=== PATIENT | male | born 1950 | race Caucasian/White ===

== ENCOUNTER 2016-11-21 08:37 | Observation (INO) | payer OTHER ==
[2016-11-21] MEDS ORDERED: SODIUM CHLORIDE 0.9% 1,000 ML IV ONE (09:07)
[2016-11-21] MEDS ORDERED: methylPREDNISolone SOD SUCCI 125 MG/2 ML VIAL IV STA (09:07)
[2016-11-21] MEDS ORDERED: diphenhydrAMINE 50 MG/ML 1 ML VIAL IVP STA (09:08)
[2016-11-21] MEDS ORDERED: PIPERACILLIN-TAZOBACTAM 3.375 GM in DEXTROSE/WATER 1 50ML.BAG IVPB STA (09:12)
[2016-11-21] MEDS ORDERED: SODIUM CHLORIDE 0.9% 1,000 ML IV SCH (09:15)
--- NOTE | 2016-11-21 09:19 | ED ---
Skin/Abscess/FB HPI - General Source: patient, RN notes reviewed, old records reviewed Mode of arrival: ambulatory Limitations: no limitations <Shruthi Rogers - Last Filed: 11/21/16 11:27> <Geraldo English - Last Filed: 11/21/16 11:48> - General Chief complaint: Skin/Abscess/Foreign Body Stated complaint: left hand swelling from bug bite Time Seen by Provider: 11/21/16 08:50 - History of Present Illness Initial comments: This is a 65-year-old male presents emergency Department chief complaint of left hand and forearm swelling and itching. Patient reports that he was stung by a bee or some type of insect on his left hand on Thursday afternoon, 2 days ago. Patient reports that after he put Solarcaine over the site. Patient states that he noticed increased swelling to his hand up towards his forearm. He then went to his primary care provider yesterday and was started on Keflex. Patient reports that he stopped drinking 2 doses of Keflex at this time. He reports that he is concerned because the area of redness and swelling and firmness is no extended up towards the elbow. Patient reports that he has normal sensation, but has limited range of motion due to the swelling is fingers , wrist and forearm. Patient states that he has not taken any Benadryl. He reports that he is has a erythematous pruritic rash extending up the forearm. Patient states that he was concerned due to the increase in size over the past 24 hours. Patient denies any fever or chills. Patient denies any chest pain, shortness of breath, nausea or vomiting. Past medical history is for depression and anxiety, and prostatectomy. (Shruthi Rogers) - Related Data Home Medications Medication Instructions Recorded Confirmed ALPRAZolam [Xanax] 0.5 mg PO BID PRN 11/21/16 11/21/16 Cephalexin [Keflex] 500 mg PO Q12HR 11/21/16 11/21/16 Cholecalciferol (Vitamin D3) 2,000 unit PO DAILY 11/21/16 11/21/16 [Vitamin D3] buPROPion HCL [Wellbutrin SR] 150 mg PO DAILY 11/21/16 11/21/16 buPROPion HCL [Wellbutrin SR] 150 mg PO DAILY PRN 11/21/16 11/21/16 Allergies Allergy/AdvReac Type Severity Reaction Status Date / Time adhesive tape Allergy Rash/Hives Verified 11/21/16 09:06 Review of Systems ROS Other: All systems not noted in ROS Statement are negative. <KenShruthi - Last Filed: 11/21/16 11:27> ROS Other: All systems not noted in ROS Statement are negative. <Geraldo English - Last Filed: 11/21/16 11:48> ROS Statement: Those systems with pertinent positive or pertinent negative responses have been documented in the HPI. Past Medical History Past Medical History: Cancer, Prostate Disorder History of Any Multi-Drug Resistant Organisms: None Reported Past Surgical History: Prostate Surgery Past Psychological History: No Psychological Hx Reported Smoking Status: Current some day smoker Past Alcohol Use History: None Reported Past Drug Use History: None Reported <KenShruthi - Last Filed: 11/21/16 11:27> General Exam Limitations: no limitations General appearance: alert, in no apparent distress Head exam: Present: atraumatic, normocephalic, normal inspection Eye exam: Present: normal appearance, PERRL, EOMI. Absent: scleral icterus, conjunctival injection, periorbital swelling ENT exam: Present: normal exam, mucous membranes moist Neck exam: Present: normal inspection. Absent: tenderness, meningismus, lymphadenopathy Respiratory exam: Present: normal lung sounds bilaterally. Absent: respiratory distress, wheezes, rales, rhonchi, stridor Cardiovascular Exam: Present: regular rate, normal rhythm, normal heart sounds. Absent: systolic murmur, diastolic murmur, rubs, gallop, clicks GI/Abdominal exam: Present: soft, normal bowel sounds. Absent: distended, tenderness, guarding, rebound, rigid Left Shoulder Exam: Present: normal inspection, full ROM Upper Arm exam: Present: normal inspection, full ROM Elbow exam: Present: normal inspection, full ROM Forearm Wrist exam: Present: swelling (Significant swelling and firmness over the left hand). Absent: normal inspection (Patient has significant redness and swelling over the forearm and wrist.), full ROM (Patient has limited range of motion of the wrist due to swelling.) Hand Wrist exam: Present: tenderness, swelling (Significant swelling and redness over the left hand.), erythema (Erythema extending over the dorsum of the hand. There is an area between the second and first metacarpal that seems to be read the initial insect bite or sting was. Small pustule site.). Absent : normal inspection, full ROM Vascular: Present: normal capillary refill, radial pulse, ulnar pulse Back exam: Present: normal inspection Neurological exam: Present: alert, oriented X3, CN II-XII intact Psychiatric exam: Present: normal affect, normal mood <Shruthi Rogers - Last Filed: 11/21/16 11:27> <Geraldo English - Last Filed: 11/21/16 11:48> - General Exam Comments Initial Comments: This is a 65-year-old male. No acute distress. (Shruthi Rogers) Course <Shruthi Rogers - Last Filed: 11/21/16 11:27> <Geraldo English - Last Filed: 11/21/16 11:48> Vital Signs 11/21/16 08:46 Temperature 98.0 F Pulse Rate 80 Respiratory 20 Rate Blood Pressure 160/72 O2 Sat by Pulse 98 Oximetry - Reevaluation(s) Reevaluation #1: 11/21/16 11:45 I did personally do a [id number] evaluation the patient the patient does demonstrate left upper extremity edema and erythema. The exam is consistent with a cellulitis likely of ALLERGIC nature however infectious etiology, rule out this time. The patient will be admitted to the hospitalist service. (Geraldo English) Medical Decision Making - Lab Data Result diagrams: 11/21/16 09:18 11/21/16 09:18 - Radiology Data Radiology results: report reviewed <Shruthi Rogers - Last Filed: 11/21/16 11:27> - Lab Data Result diagrams: 11/21/16 09:18 11/21/16 09:18 <Geraldo English - Last Filed: 11/21/16 11:48> - Medical Decision Making This is a 65-year-old male presents emergency Department chief complaint of left hand and forearm swelling and itching. Patient reports that he was stung by a bee or some type of insect on his left hand on Thursday afternoon, 2 days ago. Patient reports that after he put Solarcaine over the site. Patient states that he noticed increased swelling to his hand up towards his forearm. He then went to his primary care provider yesterday and was started on Keflex. Patient reports that he stopped drinking 2 doses of Keflex at this time. Patient does have significant swelling, and erythema extending up the dorsum of the hand, and the forearm. Patient has normal capillary refill, normal sensation. He has limited range of motion only due to the fact that his hand and wrist are very swollen. The area of induration travels all the way up the forearm ending near the radial head. He has full range of motion of the elbow. Patient was started on IV, CBC CMP and blood cultures obtained. Patient was given IV Solu-Medrol, Benadryl, and started on Zosyn. X-rays of the hand and forearm are obtained. Patient's CBC, BMP are are within normal limits. Discussed case with Dr. English. He also examined the patient. Feel best if we admitted the patient for observation for continued IV antibiotic. Patient agrees to treatment plan. ( Shruthi Rogers) - Lab Data Lab Results 11/21/16 11/21/16 Range/Units 09:18 09:18 WBC 5.5 (3.8-10.6) k/uL RBC 5.11 (4.30-5.90) m/uL Hgb 15.5 (13.0-17.5) gm/dL Hct 46.4 (39.0-53.0) % MCV 90.8 (80.0-100.0) fL MCH 30.3 (25.0-35.0) pg MCHC 33.4 (31.0-37.0) g/dL RDW 14.4 (11.5-15.5) % Plt Count 209 (150-450) k/uL Neutrophils % 68 % Lymphocytes % 17 % Monocytes % 7 % Eosinophils % 4 % Basophils % 1 % Neutrophils # 3.8 (1.3-7.7) k/uL Lymphocytes # 1.0 (1.0-4.8) k/uL Monocytes # 0.4 (0-1.0) k/uL Eosinophils # 0.2 (0-0.7) k/uL Basophils # 0.0 (0-0.2) k/uL Sodium 141 (137-145) mmol/L Potassium 4.3 (3.5-5.1) mmol/L Chloride 104 (98-107) mmol/L Carbon Dioxide 26 (22-30) mmol/L Anion Gap 11 mmol/L BUN 15 (9-20) mg/dL Creatinine 0.80 (0.66-1.25) mg/dL Est GFR (MDRD) Af Amer >60 (>60 ml/min/1.73 sqM) Est GFR (MDRD) Non-Af >60 (>60 ml/min/1.73 sqM) Glucose 114 H (74-99) mg/dL Calcium 9.1 (8.4-10.2) mg/dL Total Bilirubin 0.7 (0.2-1.3) mg/dL AST 27 (17-59) U/L ALT 38 (21-72) U/L Alkaline Phosphatase 63 (38-126) U/L Total Protein 6.4 (6.3-8.2) g/dL Albumin 3.9 (3.5-5.0) g/dL - Radiology Data No Acute fracture or dislocation seen left radius or ulna. Small amount of soft tissue swelling in the second digit dorsum of the hand, overlying the second metacarpal. No evidence of subcutaneous emphysema. No evidence of Soft tissue laceration or radiopaque foreign body. (Shruthi Rogers) Disposition Time of Disposition: 11:28 <Shruthi Rogers - Last Filed: 11/21/16 11:27> <Geraldo English - Last Filed: 11/21/16 11:48> Clinical Impression: Left arm cellulitis, Left arm swelling Disposition: ADMITTED IP TO THIS [facility] Condition: Stable Referrals: Quan Stafford DO [Primary Care Provider] - 1-2 days
[2016-11-21 09:35] LABS: Basophils % (A) 1 %; CHCM 34.3; Eosinophils # (A) 0.2 k/uL (0-0.7); Eosinophils % (A) 4 %; HCT 46.4 % (39.0-53.0); HGB 15.5 gm/dL (13.0-17.5); Luc # (Auto) 0.11; Luc % (Auto) 2; Lymphocytes % (A) 17 %; MCH 30.3 pg (25.0-35.0); MCHC 33.4 g/dL (31.0-37.0); MCV 90.8 fL (80.0-100.0); Monocytes # (A) 0.4 k/uL (0-1.0); Monocytes % (A) 7 %; Neutrophils # (A) 3.8 k/uL (1.3-7.7); Neutrophils % (A) 68 %; RBC 5.11 m/uL (4.30-5.90); RDW 14.4 % (11.5-15.5); WBC 5.5 k/uL (3.8-10.6); WBC (Perox) 5.48
[2016-11-21 09:54] LABS: ALT 38 U/L (21-72); AST 27 U/L (17-59); Alkaline Phosphatase 63 U/L (38-126); Anion Gap 11 mmol/L; Blood Urea Nitrogen 15 mg/dL (9-20); Calcium 9.1 mg/dL (8.4-10.2); Carbon Dioxide 26 mmol/L (22-30); Chloride 104 mmol/L (98-107); Glucose 114 mg/dL (74-99); Non-African American GFR(MDRD) >60 (>60 ml/min/1.73 sqM); Potassium 4.3 mmol/L (3.5-5.1); Sodium 141 mmol/L (137-145); Total Bilirubin 0.7 mg/dL (0.2-1.3); Total Protein 6.4 g/dL (6.3-8.2)
--- NOTE | 2016-11-21 10:04 | XR ---
EXAMINATION TYPE: XR forearm LT, XR hand limited LT DATE OF EXAM: 11/21/2016 CLINICAL HISTORY: Patient was bit by a bug with subsequent pain of the posterior left hand and the se cond mid metacarpal area with renders swelling from the fingers to the elbow. TECHNIQUE: Two views of the left forearm are obtained. COMPARISON: None. FINDINGS: There is no acute fracture or dislocation seen in the left radius or ulna. The left elbow and wrist joints appear within normal limits. Mild soft tissue swelling is seen of the second digit overlying the proximal phalanx and metacarpal. No evidence of osseous erosion, periosteal reaction, o r subcutaneous emphysema. No radiopaque foreign body. IMPRESSION: There is no acute fracture or dislocation seen in the left radius or ulna. Small amount of soft tissue swelling of the second digit and dorsum of the hand overlying the second metacarpal wi th no evidence of subcutaneous emphysema, soft tissue laceration or radiopaque foreign body.
[2016-11-21] MEDS ORDERED: ACETAMINOPHEN TAB 325 MG TAB PO PRN (11:28)
[2016-11-21] MEDS ORDERED: ONDANSETRON 4 MG/2 ML VIAL IVP PRN (11:28)
[2016-11-21] MEDS ORDERED: MORPHINE SULFATE 4 MG/ML SYRINGE IV PRN (11:28)
[2016-11-21] MEDS ORDERED: LORazepam 2 MG/ML SYRINGE IV PRN (11:28)
[2016-11-21] MEDS ORDERED: NALOXONE 0.4 MG/ML 1 ML VIAL IV PRN (11:28)
[2016-11-21] MEDS ORDERED: KETOROLAC 30 MG/ML 1 ML VIAL IVP PRN (11:28)
[2016-11-21] MEDS ORDERED: IBUPROFEN 400 MG TAB PO PRN (11:28)
[2016-11-21] MEDS: diphenhydrAMINE 50 MG/ML 1 ML VIAL IVP SCH ×2 (12:53→20:40)
[2016-11-21] MEDS: PIPERACILLIN-TAZOBACTAM 3.375 GM in DEXTROSE/WATER 1 50ML.BAG IVPB SCH ×2 (16:07→22:56)
--- NOTE | 2016-11-22 00:12 | P.HPIM ---
History of Present Illness H&P Date: 11/21/16 Chief Complaint: Left hand swelling This is a 65-year-old male with a past medical history of anxiety/depression and prostate cancer status post surgery, presents emergency Department chief complaint of left hand and forearm swelling and itching. Patient reports that he was stung by a bee or some type of insect on his left hand on Thursday afternoon, 2 days ago. Patient reports that after he put Solarcaine over the site. Patient states that he noticed increased swelling to his hand up towards his forearm. He then went to his primary care provider yesterday and was started on Keflex. Patient did take 2 doses.. He reports that he is concerned because the area of redness and swelling and firmness is no extended up towards the elbow. Patient denies any fever or chills. Patient denies any chest pain, shortness of breath, nausea or vomiting. X-ray of the hand: No Acute fracture or dislocation seen left radius or ulna. Small amount of soft tissue swelling in the second digit dorsum of the hand, overlying the second metacarpal. No evidence of subcutaneous emphysema. No evidence of Soft tissue laceration or radiopaque foreign body. No electrolyte abnormalities noted. No leukocytosis Review of Systems CONSTITUTIONAL: No fever, no malaise, no fatigue. HEENT: No recent visual problems or hearing problems. Denied any sore throat. CARDIOVASCULAR: No chest pain, orthopnea, PND, no palpitations, no syncope. PULMONARY: , no hemoptysis. GASTROINTESTINAL: No diarrhea, no nausea, no vomiting, no abdominal pain. Normoactive bowel sounds. NEUROLOGICAL: No headaches, no weakness, no numbness. HEMATOLOGICAL: Denies any bleeding or petechiae. GENITOURINARY: Denies any burning micturition, frequency, or urgency. MUSCULOSKELETAL/RHEUMATOLOGICAL: Denies any joint pain, swelling, or any muscle pain. Patient does have left hand swelling on the dorsal area Skin: Redness and rash over the forehead ENDOCRINE: Denies any polyuria or polydipsia. The rest of the 14-point review of systems is negative. Past Medical History Past Medical History: Cancer, Prostate Disorder History of Any Multi-Drug Resistant Organisms: None Reported Past Surgical History: Prostate Surgery Past Anesthesia/Blood Transfusion Reactions: No Reported Reaction Past Psychological History: No Psychological Hx Reported Smoking Status: Never smoker Past Alcohol Use History: None Reported Past Drug Use History: None Reported - Past Family History Brother(s) Family Medical History: Myocardial Infarction (ND) Father Family Medical History: Cancer, Diabetes Mellitus Additional Family Medical History / Comment(s): liver Sister(s) Family Medical History: Diabetes Mellitus Medications and Allergies Home Medications Medication Instructions Recorded Confirmed Type ALPRAZolam [Xanax] 0.5 mg PO BID PRN 11/21/16 11/21/16 History Cephalexin [Keflex] 500 mg PO Q12HR 11/21/16 11/21/16 History Cholecalciferol (Vitamin D3) 2,000 unit PO DAILY 11/21/16 11/21/16 History [Vitamin D3] buPROPion HCL [Wellbutrin SR] 150 mg PO DAILY 11/21/16 11/21/16 History buPROPion HCL [Wellbutrin SR] 150 mg PO DAILY PRN 11/21/16 11/21/16 History Allergies Allergy/AdvReac Type Severity Reaction Status Date / Time adhesive tape Allergy Rash/Hives Verified 11/21/16 09:06 Physical Exam Vitals: Vital Signs Temp Pulse Pulse Resp BP BP Pulse Ox 11/21/16 19:38 97.7 F 78 16 141/64 95 11/21/16 16:00 18 11/21/16 15:32 98.8 F 78 18 149/74 95 11/21/16 12:53 98.1 F 56 L 18 142/68 94 L 11/21/16 12:04 98.3 F 57 L 18 153/68 98 11/21/16 08:46 98.0 F 80 20 160/72 98 Intake and Output 11/21/16 11/21/16 11/21/16 06:59 14:59 22:59 Intake Total 360 Balance 360 Intake: Oral 360 Other: Voiding Method Toilet Toilet Weight 101.605 kg Patient Weight 11/22/16 06:59 Weight 101.605 kg PHYSICAL EXAMINATION: Patient is lying in the bed comfortably, no acute distress, awake alert and oriented.. HEENT: Normocephalic. Neck is supple. Pupils reactive. Nostrils clear. Oral cavity is moist. Ears reveal no drainage. Neck reveals no JVD, carotid bruits, or thyromegaly. CHEST EXAMINATION: Trachea is central. Symmetrical expansion. Lung cai clear to auscultation and percussion. CARDIAC: Normal S1, S2 with no gallops. No murmurs ABDOMEN: Soft. Bowel sounds normal. No organomegaly. No abdominal bruits. Extremities reveal no edema. No clubbing or cyanosis Neurologically awake, alert, oriented x3 with well-coordinated movements. Skin: Rash and does have left hand dorsal swelling and redness with erythema extending to the elbow. Patient does have a rash papular. Musculoskeletal: no joint swelling or deformity. Results CBC & Chem 7: 11/21/16 09:18 11/21/16 09:18 Labs: Abnormal Lab Results - Last 24 Hours (Table) 11/21/16 Range/Units 09:18 Glucose 114 H (74-99) mg/dL Thrombosis Risk Factor Assmnt - DVT/VTE Prophylaxis DVT/VTE Prophylaxis: Pharmacologic Prophylaxis ordered - Choose All That Apply Each Factor Represents 1 point: Obesity (BMI >25) Each Risk Factor Represents 2 Points: Age 61-74 years Thrombosis Risk Factor Assessment Total Risk Factor Score: 3 Thrombosis Risk Factor Assessment Level: Moderate Risk Assessment and Plan Plan: #1 left arm cellulitis. Status post insect bite 2 days ago. ALLERGIC reaction to insect bite. Failed outpatient therapy with Keflex #2 anxiety #3 history of prostate cancer status post resection. Plan: Patient will be continued on antibiotics in the form of Zosyn. Continue the pain management with Motrin. Patient was given a dose of Solu-Medrol in the ER. We will continue the current management and follow closely. Follow blood cultures and further recommendations based on the clinical course.
[2016-11-22] MEDS: diphenhydrAMINE 50 MG/ML 1 ML VIAL IVP SCH ×2 (04:17→12:18)
[2016-11-22] MEDS: PIPERACILLIN-TAZOBACTAM 3.375 GM in DEXTROSE/WATER 1 50ML.BAG IVPB SCH ×2 (08:09→17:51)
[2016-11-22] MEDS ORDERED: PANTOPRAZOLE 40 MG/10 ML VIAL IV SCH (09:00)
[2016-11-22 16:06] VITALS: BP 129/58; PULSE 54; RESP 18; TEMP 98.6
--- NOTE | 2016-11-23 01:32 | P.DS ---
Providers Date of admission: 11/21/16 11:45 Expected date of discharge: 11/22/16 Attending physician: Ev Burgess Primary care physician: Quan Stafford Hospital Course: Discharge diagnosis #1 left arm cellulitis. Status post insect bite 2 days ago. ALLERGIC reaction to insect bite. Failed outpatient therapy with Keflex #2 anxiety #3 history of prostate cancer status post resection. #4 abdominal ventral hernia outpatient surgery follow-up. Hospital course This is a 65-year-old male with a past medical history of anxiety/depression and prostate cancer status post surgery, presents emergency Department chief complaint of left hand and forearm swelling and itching. Patient reports that he was stung by a bee or some type of insect on his left hand on Thursday afternoon, 2 days ago. Patient reports that after he put Solarcaine over the site. Patient states that he noticed increased swelling to his hand up towards his forearm. He then went to his primary care provider yesterday and was started on Keflex. Patient did take 2 doses.. He reports that he is concerned because the area of redness and swelling and firmness is no extended up towards the elbow. Patient denies any fever or chills. Patient denies any chest pain, shortness of breath, nausea or vomiting. X-ray of the hand: No Acute fracture or dislocation seen left radius or ulna. Small amount of soft tissue swelling in the second digit dorsum of the hand, overlying the second metacarpal. No evidence of subcutaneous emphysema. No evidence of Soft tissue laceration or radiopaque foreign body. No electrolyte abnormalities noted. No leukocytosis H and was continued on IV Zosyn while in the hospital and his hand swelling and redness is almost resolved. Patient will be continued on by mouth antibiotics in the form of Keflex blood cultures negative PHYSICAL EXAMINATION: Patient is lying in the bed comfortably, no acute distress, awake alert and oriented.. HEENT: Normocephalic. Neck is supple. Pupils reactive. Nostrils clear. Oral cavity is moist. Ears reveal no drainage. Neck reveals no JVD, carotid bruits, or thyromegaly. CHEST EXAMINATION: Trachea is central. Symmetrical expansion. Lung cai clear to auscultation and percussion. CARDIAC: Normal S1, S2 with no gallops. No murmurs ABDOMEN: Soft. Bowel sounds normal. No organomegaly. No abdominal bruits. Extremities reveal no edema. No clubbing or cyanosis Neurologically awake, alert, oriented x3 with well-coordinated movements. Skin: no rash or skin lesions Musculoskeletal: no joint swelling or deformity. Patient Condition at Discharge: Stable Plan - Discharge Summary New Discharge Prescriptions: Continue Cephalexin [Keflex] 500 mg PO Q12HR ALPRAZolam [Xanax] 0.5 mg PO BID PRN PRN Reason: Anxiety buPROPion HCL [Wellbutrin SR] 150 mg PO DAILY buPROPion HCL [Wellbutrin SR] 150 mg PO DAILY PRN PRN Reason: energy Cholecalciferol (Vitamin D3) [Vitamin D3] 2,000 unit PO DAILY Discharge Medication List ALPRAZolam [Xanax] 0.5 mg PO BID PRN 11/21/16 [History] Cephalexin [Keflex] 500 mg PO Q12HR 11/21/16 [History] Cholecalciferol (Vitamin D3) [Vitamin D3] 2,000 unit PO DAILY 11/21/16 [History] buPROPion HCL [Wellbutrin SR] 150 mg PO DAILY 11/21/16 [History] buPROPion HCL [Wellbutrin SR] 150 mg PO DAILY PRN 11/21/16 [History] Follow up Appointment(s)/Referral(s): Quan Stafford DO [Primary Care Provider] - 1-2 days Discharge Disposition: HOME SELF-CARE
== END 2016-11-22 17:51 | disposition home or self-care (01) ==
LOC: EC 08:37 → 3OBS 11:45
PROVIDERS: ADMIT Internal Medicine; ATTEND Internal Medicine
DX: S40.862A Insect bite (nonvenomous) of left upper arm, initial encounter (principal); L03.114 Cellulitis of left upper limb; W57.XXXA Bitten or stung by nonvenomous insect and other nonvenomous arthropods, initial encounter; F41.9 Anxiety disorder, unspecified; F32.9 Major depressive disorder, single episode, unspecified; Z91.048 Other nonmedicinal substance allergy status; F17.200 Nicotine dependence, unspecified, uncomplicated; K43.9 Ventral hernia without obstruction or gangrene; Z85.46 Personal history of malignant neoplasm of prostate; Z82.49 Family history of ischemic heart disease and other diseases of the circulatory system; Z83.3 Family history of diabetes mellitus
CPT/HCPCS: 96365 ×2; 96366 ×5; 96375 ×4; 99284; 96376 ×2; 36415; 80053; 85025; 87040; 73090; 73120; G0378 ×2; J1200 ×2; J2930; J2543 ×2; C9113; 96361

== ENCOUNTER → 2018-09-17 | Outpatient (CLI) | payer MEDICARE, OTHER ==
--- NOTE | 2018-09-19 23:39 | XR ---
EXAMINATION TYPE: XR knee complete bilateral DATE OF EXAM: 09/17/2018 COMPARISON: Left knee 10/12/2015 HISTORY: 67-year-old male chronic bilateral knee pain TECHNIQUE: 3 views each side FINDINGS: Left: No acute fracture, subluxation, or dislocation seen. Trace knee joint effusion is suggested. Right: Mild tricompartmental degenerative spurring is present with possible moderate narrowing of lat eral compartment cartilage and joint space. There is a small knee joint effusion. Extensor mechanism is intact. IMPRESSION: 1. No acute osseous abnormality on either side. Trace knee joint effusion on the left and small on th e right. 2. Mild tricompartmental osteoarthrosis on the right, possibly moderate in the lateral compartment.
== END | disposition home or self-care (01) ==
LOC: RADXRYALE 15:59
PROVIDERS: ATTEND Physician Assistant Medical
DX: M17.11 Unilateral primary osteoarthritis, right knee (principal)

== ENCOUNTER 2019-08-31 08:50 | Emergency (ER) | payer MEDICARE, OTHER ==
[2019-08-31 08:56] VITALS: RESP 18
--- NOTE | 2019-08-31 09:11 | ED ---
General Adult HPI - General Chief complaint: Urogenital Stated complaint: blood in urine Time Seen by Provider: 08/31/19 08:51 Source: patient, RN notes reviewed, old records reviewed Mode of arrival: ambulatory Limitations: no limitations - History of Present Illness Initial comments: 68-year-old male presents for evaluation of hematuria and right groin pain. Patient states he noticed the pain as well as hematuria this morning. He has previous history of prostate cancer status post resection. He follows on a regular basis with urology. He denies any difficulty urinating. He has been eating and drinking well. No vomiting or diarrhea. No fever. No preceding dysuria. - Related Data Home Medications Medication Instructions Recorded Confirmed ALPRAZolam [Xanax] 0.5 mg PO BID PRN 11/21/16 11/21/16 Cephalexin [Keflex] 500 mg PO Q12HR 11/21/16 11/21/16 Cholecalciferol (Vitamin D3) 2,000 unit PO DAILY 11/21/16 11/21/16 [Vitamin D3] buPROPion HCL [Wellbutrin SR] 150 mg PO DAILY 11/21/16 11/21/16 buPROPion HCL [Wellbutrin SR] 150 mg PO DAILY PRN 11/21/16 11/21/16 Previous Rx's Medication Instructions Recorded Cephalexin [Keflex] 500 mg PO Q12HR #20 cap 08/31/19 Allergies Allergy/AdvReac Type Severity Reaction Status Date / Time adhesive tape Allergy Rash/Hives Verified 08/31/19 08:56 Review of Systems ROS Statement: Those systems with pertinent positive or pertinent negative responses have been documented in the HPI. ROS Other: All systems not noted in ROS Statement are negative. Past Medical History Past Medical History: Cancer, Prostate Disorder Additional Past Medical History / Comment(s): prostate CA History of Any Multi-Drug Resistant Organisms: None Reported Past Surgical History: Prostate Surgery Past Anesthesia/Blood Transfusion Reactions: No Reported Reaction Past Psychological History: No Psychological Hx Reported Smoking Status: Never smoker Past Alcohol Use History: None Reported Past Drug Use History: None Reported - Past Family History Brother(s) Family Medical History: Myocardial Infarction ([place]) Father Family Medical History: Cancer, Diabetes Mellitus Additional Family Medical History / Comment(s): liver Sister(s) Family Medical History: Diabetes Mellitus General Exam Limitations: no limitations General appearance: alert, in no apparent distress Head exam: Present: atraumatic, normocephalic Eye exam: Present: normal appearance, PERRL ENT exam: Present: normal exam Neck exam: Present: normal inspection. Absent: tenderness, meningismus Respiratory exam: Present: normal lung sounds bilaterally. Absent: respiratory distress, wheezes Cardiovascular Exam: Present: regular rate, normal rhythm GI/Abdominal exam: Present: soft. Absent: distended, tenderness, guarding exam: Present: normal inspection, vertical testicular lie. Absent: testicular tenderness, urethral discharge, scrotal swelling Extremities exam: Present: normal inspection, normal capillary refill. Absent: pedal edema Back exam: Present: normal inspection. Absent: CVA tenderness (R), CVA tenderness (L) Neurological exam: Present: alert, oriented X3, CN II-XII intact. Absent: motor sensory deficit Psychiatric exam: Present: normal affect, normal mood Skin exam: Present: warm, dry, intact. Absent: cyanosis, diaphoretic Course Vital Signs 08/31/19 08:53 Temperature 98.7 F Pulse Rate 58 L Respiratory 18 Rate Blood Pressure 156/71 O2 Sat by Pulse 97 Oximetry Medical Decision Making - Medical Decision Making 68-year-old male with hematuria, groin discomfort. Scrotal exam unremarkable, no appreciated hernias. CT performed which is negative for any acute intra- abdominal process, no hydronephrosis, no obstructing stone. This was a CT without contrast. Laboratory testing reveals normal white blood cell count, stable hemoglobin, normal x-rays, normal kidney function, urinalysis consistent with hematuria, there is some elevation in white cells, culture will be obtained and the patient will be initiated on antibiotics. Patient will follow-up with his urologist Dr. Fitzgerald. - Lab Data Result diagrams: 08/31/19 09:17 08/31/19 09:17 Lab Results 08/31/19 08/31/19 08/31/19 Range/Units 09:17 09:17 09:17 WBC 6.3 (3.8-10.6) k/uL RBC 5.12 (4.30-5.90) m/uL Hgb 15.9 (13.0-17.5) gm/dL Hct 47.5 (39.0-53.0) % MCV 92.8 (80.0-100.0) fL MCH 31.1 (25.0-35.0) pg MCHC 33.5 (31.0-37.0) g/dL RDW 14.0 (11.5-15.5) % Plt Count 202 (150-450) k/uL Neutrophils % 65 % Lymphocytes % 24 % Monocytes % 6 % Eosinophils % 2 % Basophils % 1 % Neutrophils # 4.1 (1.3-7.7) k/uL Lymphocytes # 1.5 (1.0-4.8) k/uL Monocytes # 0.4 (0-1.0) k/uL Eosinophils # 0.2 (0-0.7) k/uL Basophils # 0.0 (0-0.2) k/uL PT 10.2 (9.0-12.0) sec INR 1.0 (<1.2) APTT 23.8 (22.0-30.0) sec Sodium (137-145) mmol/L Potassium (3.5-5.1) mmol/L Chloride (98-107) mmol/L Carbon Dioxide (22-30) mmol/L Anion Gap mmol/L BUN (9-20) mg/dL Creatinine (0.66-1.25) mg/dL Est GFR (CKD-EPI)AfAm (>60 ml/min/1.73 sqM) Est GFR (CKD-EPI)NonAf (>60 ml/min/1.73 sqM) Glucose (74-99) mg/dL Calcium (8.4-10.2) mg/dL Urine Color Red Urine Appearance Cloudy (Clear) Urine pH 6.5 (5.0-8.0) Ur Specific [place] 1.019 (1.001-1.035) Urine Protein 1+ H (Negative) Urine Glucose (UA) Negative (Negative) Urine Ketones Negative (Negative) Urine Blood Large H (Negative) Urine Nitrite Negative (Negative) Urine Bilirubin Negative (Negative) Urine Urobilinogen <2.0 (<2.0) mg/dL Ur Leukocyte Esterase Small H (Negative) Urine RBC >182 H (0-5) /hpf Urine WBC 62 H (0-5) /hpf 08/31/19 Range/Units 09:17 WBC (3.8-10.6) k/uL RBC (4.30-5.90) m/uL Hgb (13.0-17.5) gm/dL Hct (39.0-53.0) % MCV (80.0-100.0) fL MCH (25.0-35.0) pg MCHC (31.0-37.0) g/dL RDW (11.5-15.5) % Plt Count (150-450) k/uL Neutrophils % % Lymphocytes % % Monocytes % % Eosinophils % % Basophils % % Neutrophils # (1.3-7.7) k/uL Lymphocytes # (1.0-4.8) k/uL Monocytes # (0-1.0) k/uL Eosinophils # (0-0.7) k/uL Basophils # (0-0.2) k/uL PT (9.0-12.0) sec INR (<1.2) APTT (22.0-30.0) sec Sodium 137 (137-145) mmol/L Potassium 4.1 (3.5-5.1) mmol/L Chloride 103 (98-107) mmol/L Carbon Dioxide 24 (22-30) mmol/L Anion Gap 10 mmol/L BUN 18 (9-20) mg/dL Creatinine 0.71 (0.66-1.25) mg/dL Est GFR (CKD-EPI)AfAm >90 (>60 ml/min/1.73 sqM) Est GFR (CKD-EPI)NonAf >90 (>60 ml/min/1.73 sqM) Glucose 120 H (74-99) mg/dL Calcium 9.4 (8.4-10.2) mg/dL Urine Color Urine Appearance (Clear) Urine pH (5.0-8.0) Ur Specific [place] (1.001-1.035) Urine Protein (Negative) Urine Glucose (UA) (Negative) Urine Ketones (Negative) Urine Blood (Negative) Urine Nitrite (Negative) Urine Bilirubin (Negative) Urine Urobilinogen (<2.0) mg/dL Ur Leukocyte Esterase (Negative) Urine RBC (0-5) /hpf Urine WBC (0-5) /hpf Disposition Clinical Impression: Hematuria Disposition: HOME SELF-CARE Condition: Good Instructions (If sedation given, give patient instructions): Urinary Tract Infection in Men (ED), Hematuria (ED) Prescriptions: Cephalexin [Keflex] 500 mg PO Q12HR #20 cap Is patient prescribed a controlled substance at d/c from ED?: No Referrals: Quan Stafford DO [Primary Care Provider] - 1-2 days Salo Fitzgerald MD [STAFF PHYSICIAN] - 1-2 days Time of Disposition: 10:21
--- NOTE | 2019-08-31 09:49 | CT ---
EXAMINATION TYPE: CT abdomen pelvis wo con DATE OF EXAM: 08/31/2019 COMPARISON: 01/10/15 HISTORY: Hematuria, started today; History of prostate cancer CT DLP: 1229.4 mGycm Examination of the solid and hollow viscera is limited given the lack of contrast. FINDINGS: LUNG BASES: No evidence for nodule. No evidence for infiltrate. Evidence of granulomatous disease. LIVER/GB: The gallbladder is unremarkable. No space-occupying hepatic lesion. Hepatic granulomas note d. PANCREAS: No pancreatic mass identified. No inflammatory process seen. SPLEEN: No evidence for splenomegaly. No intrasplenic lesions seen. Splenic granulomas noted. ADRENALS: No adrenal nodules identified. No evidence for thickening. KIDNEYS: No evidence for renal mass. No nephrolithiasis. No hydronephrosis. BOWEL: Appendix has a normal appearance. No evidence of bowel obstruction. No inflammatory process. Lymph nodes: No evidence for adenopathy greater than 1 cm. Abdominal aorta: Atheromatous changes seen. No evidence for aneurysm. Genital organs: No significant abnormality. Other: Small anterior abdominal wall seroma measuring 4.7 x 3 point centimeters from prior herniorrha phy. IMPRESSION: 1. No acute intra-abdominal process identified to account for the patient's symptoms.
[2019-08-31 09:54] LABS: Basophils % (A) 1 %; Eosinophils # (A) 0.2 k/uL (0-0.7); Eosinophils % (A) 2 %; HCT 47.5 % (39.0-53.0); HGB 15.9 gm/dL (13.0-17.5); Lymphocytes # (A) 1.5 k/uL (1.0-4.8); Lymphocytes % (A) 24 %; MCH 31.1 pg (25.0-35.0); MCHC 33.5 g/dL (31.0-37.0); MCV 92.8 fL (80.0-100.0); Monocytes # (A) 0.4 k/uL (0-1.0); Monocytes % (A) 6 %; Neutrophils # (A) 4.1 k/uL (1.3-7.7); Neutrophils % (A) 65 %; Platelet Count 202 k/uL (150-450); RBC 5.12 m/uL (4.30-5.90); WBC 6.3 k/uL (3.8-10.6)
[2019-08-31 10:03] LABS: African American GFR (CKD) >90 (>60 ml/min/1.73 sqM); Anion Gap 10 mmol/L; Blood Urea Nitrogen 18 mg/dL (9-20); Calcium 9.4 mg/dL (8.4-10.2); Carbon Dioxide 24 mmol/L (22-30); Chloride 103 mmol/L (98-107); Glucose 120 mg/dL (74-99); Non-African American GFR(CKD) >90 (>60 ml/min/1.73 sqM); Potassium 4.1 mmol/L (3.5-5.1); Sodium 137 mmol/L (137-145)
[2019-08-31 10:22] LABS: Partial Thromboplastin Time 23.8 sec (22.0-30.0); Prothrombin Time 10.2 sec (9.0-12.0)
[2019-08-31 10:35] LABS: Appearance,Urine Cloudy (Clear); Bilirubin,Urine Negative (Negative); Blood,Urine Large (Negative); Color,Urine Red; Glucose,Urine (UA) Negative (Negative); Ketones,Urine Negative (Negative); Leukocyte Esterase,Urine Small (Negative); Nitrite,Urine Negative (Negative); PH, Urine 6.5 (5.0-8.0); Protein,Urine 1+ (Negative); RBC,Urine >182 /hpf (0-5); Specific Gravity,Urine 1.019 (1.001-1.035); Urobilinogen,Urine <2.0 mg/dL (<2.0); WBC,Urine 62 /hpf (0-5)
[2019-08-31 11:16] VITALS: BP 166/85; PULSE 82; TEMP 98
== END 2019-08-31 11:16 | disposition home or self-care (01) ==
LOC: EC 08:50
DX: R31.9 Hematuria, unspecified (principal); D72.829 Elevated white blood cell count, unspecified; R10.31 Right lower quadrant pain; Z91.048 Other nonmedicinal substance allergy status; Z85.46 Personal history of malignant neoplasm of prostate; Z98.890 Other specified postprocedural states
CPT/HCPCS: 36415; 74176; 80048; 81001; 85025; 85610; 85730; 87086; 99284

== ENCOUNTER 2019-10-17 08:32 | Day surgery (SDC) | payer MEDICARE, OTHER ==
[2019-10-14 10:04] VITALS: BMI 35.2
[~2019-10-17 08:32] MED LIST: LACTATED RINGERS 1,000 ML IV SCH; LIDOCAINE 1% (10MG/ML) FOR IV START INTRADERMA PRN
[2019-10-17] MEDS ORDERED: LACTATED RINGERS 1,000 ML IV ONE (08:41)
[2019-10-17 08:45] VITALS: TEMP 97.1
[2019-10-17] MEDS ORDERED: PROPOFOL 10 MG/ML 20 ML VIAL IV ONE (09:21)
--- NOTE | 2019-10-17 10:00 | P.PCN ---
Date of Procedure: 10/17/19 Description of Procedure: BRIEF HISTORY: Patient is a 68-year-old male presenting for outpatient colonoscopy for evaluation of positive Cologard. Reports last colonoscopy over 10 years ago with polyps removed. No change in bowel habits, blood per rectum or abdominal pain. No family history of colon cancer. PROCEDURE PERFORMED: Colonoscopy with polypectomy. PREOPERATIVE DIAGNOSIS: Positive Cologard, last colonoscopy over 10 years ago, personal history of colon polyps. ESTIMATED BLOOD LOSS: Minimal. IV sedation per Anesthesia. PROCEDURE: After informed consent was obtained, the patient, was brought into the endoscopy unit. IV sedation was administered by Anesthesia under continuous monitoring. Digital rectal examination was normal. Initially the Olympus CF-190 flexible video colonoscope was then inserted in the rectum, gradually advanced into the cecum without any difficulty. Careful examination was performed as the scope was gradually being withdrawn. Ileocecal valve and the appendiceal orifice were visualized and appeared normal. Prep was excellent. Mucosa of the cecum, ascending colon, transverse colon, descending colon, sigmoid colon, and rectum appeared normal. Multiple sessile colon polyps measuring 1-3 mm in size removed with cold forcep polypectomy 5 from the transverse colon, 3 from the ascending colon, one from the hepatic flexure, and one from the descending colon. A 8 mm hepatic flexure polyp removed with cold snare polypectomy. Pedunculated 12 mm transverse colon polyp removed with hot snare polypectomy. Mild sigmoid diverticulosis. Retroflexion was performed in the rectum and no lesions were seen. The patient tolerated the procedure well. IMPRESSION: 10 diminutive polyps removed with cold forcep polypectomy, 5 from the transverse colon, 3 from the ascending colon, one from the hepatic flexure, and one from the descending colon. 8 mm hepatic flexure polyp removed with cold snare polypectomy.. Pedunculated large transverse colon polyp removed with hot snare polypectomy. Mild sigmoid diverticulosis. RECOMMENDATIONS: Findings of this examination were discussed with the patient. Okay to resume diet. Okay to resume medications. Would recommend repeat colonoscopy in 1 year given high-risk colon polyps. Patient should not undergo Cologard in the future given history of colon polyps.
[2019-10-17 10:14] VITALS: BP 133/71; PULSE 53; RESP 16
== END 2019-10-17 10:34 | disposition home or self-care (01) ==
LOC: ORWHC2ENDO 08:32
PROVIDERS: ATTEND Internal Medicine
DX: D12.2 Benign neoplasm of ascending colon (principal); D12.4 Benign neoplasm of descending colon; D12.3 Benign neoplasm of transverse colon; K57.30 Diverticulosis of large intestine without perforation or abscess without bleeding; Z86.010 Personal history of colon polyps; G47.33 Obstructive sleep apnea (adult) (pediatric); M10.9 Gout, unspecified; Z91.09 Other allergy status, other than to drugs and biological substances; Z79.899 Other long term (current) drug therapy; Z98.890 Other specified postprocedural states; Z87.19 Personal history of other diseases of the digestive system; Z85.46 Personal history of malignant neoplasm of prostate; Z80.0 Family history of malignant neoplasm of digestive organs
CPT/HCPCS: 88305; 45380; 45385; J2704

== ENCOUNTER 2019-11-04 18:46 | Emergency (ER) | payer MEDICARE, OTHER ==
[2019-11-04 19:04] VITALS: BP 139/73; PULSE 65; RESP 18; TEMP 98.4
[2019-11-04] MEDS ORDERED: DIPH,PERTUS(ACELL)TETVAC-LF 0.5 ML VIAL IM ONE (19:17)
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
[2019-11-04] MEDS ORDERED: CEPHALEXIN 500MG STARTER PACK 4 CAP BTL PO STA (19:51)
== END 2019-11-04 20:12 | disposition home or self-care (01) ==
LOC: EC 18:46
DX: T25.312A Burn of third degree of left ankle, initial encounter (principal); G47.30 Sleep apnea, unspecified; M10.9 Gout, unspecified; Z23 Encounter for immunization; Z79.899 Other long term (current) drug therapy; Z91.048 Other nonmedicinal substance allergy status; Z99.89 Dependence on other enabling machines and devices; Z85.46 Personal history of malignant neoplasm of prostate; X18.XXXA Contact with other hot metals, initial encounter; Y92.009 Unspecified place in unspecified non-institutional (private) residence as the place of occurrence of the external cause
CPT/HCPCS: 90471; 90715; 99284

== ENCOUNTER → 2019-11-10 | Outpatient (CLI) | payer MEDICARE, OTHER ==
[2019-11-10 12:06] LABS: Basophils # (A) 0.1 k/uL (0-0.2); Basophils % (A) 1 %; Eosinophils # (A) 0.3 k/uL (0-0.7); Eosinophils % (A) 3 %; HCT 46.9 % (39.0-53.0); HGB 15.1 gm/dL (13.0-17.5); Lymphocytes # (A) 1.9 k/uL (1.0-4.8); Lymphocytes % (A) 21 %; MCH 29.9 pg (25.0-35.0); MCHC 32.1 g/dL (31.0-37.0); MCV 93.2 fL (80.0-100.0); Mean Platelet Volume 8.1; Monocytes # (A) 0.7 k/uL (0-1.0); Monocytes % (A) 8 %; Neutrophils # (A) 5.8 k/uL (1.3-7.7); Neutrophils % (A) 65 %; Platelet Count 270 k/uL (150-450); RBC 5.04 m/uL (4.30-5.90); WBC 8.9 k/uL (3.8-10.6)
[2019-11-10 18:53] LABS: African American GFR (CKD) 102.1 (60.0-200.0); Albumin 4.4 g/dL (3.80-4.90); Albumin/Globulin Ratio 2.2 (1.60-3.17); Anion Gap 5.7 mmol/L (4.00-12.00); C Reactive Protein 2.2 mg/dL (0.0-0.8); Calcium 9.6 mg/dL (8.7-10.3); Carbon Dioxide 29.3 mmol/L (21.6-31.8); Non-African American GFR(CKD) 88.1 (60.0-200.0); Potassium 4.4 mmol/L (3.5-5.5); Total Bilirubin 0.6 mg/dL (0.3-1.2); Total Protein 6.4 g/dL (6.2-8.2)
[2019-11-10 19:51] LABS: Erythrocyte Sedimentation Rate 10 mm/Hr (0-20)
== END | disposition home or self-care (01) ==
LOC: LABWHC1 11:24
PROVIDERS: ATTEND Family Medicine
DX: L97.323 Non-pressure chronic ulcer of left ankle with necrosis of muscle (principal); Z91.048 Other nonmedicinal substance allergy status; T25.3 Burn of third degree of ankle and foot; L03.116 Cellulitis of left lower limb; M10.00 Idiopathic gout, unspecified site; R22.42 Localized swelling, mass and lump, left lower limb
CPT/HCPCS: 36415; 80053; 84134; 85025; 85652; 86140

== ENCOUNTER → 2019-11-17 | Outpatient (CLI) | payer MEDICARE, OTHER ==
--- NOTE | 2019-11-17 15:09 | US ---
EXAMINATION TYPE: US venous doppler duplex LE BI DATE OF EXAM: 11/17/2019 2:56 PM COMPARISON: NONE CLINICAL HISTORY: wound care. Wound left ankle SIDE PERFORMED: Bilateral TECHNIQUE: The lower extremity deep venous system is examined utilizing real time linear array sonog flakito with graded compression, doppler sonography and color-flow sonography. VESSELS IMAGED: External Iliac Vein (EIV) Common Femoral Vein Deep Femoral Vein Greater Saphenous Vein * Femoral Vein Popliteal Vein Small Saphenous Vein * Proximal Calf Veins (* superficial vessels) Right Leg: Negative for DVT Left Leg: Negative for DVT IMPRESSION: 1. No diagnostic evidence of DVT as visualized.
== END | disposition home or self-care (01) ==
LOC: RADUSWWP 13:30
PROVIDERS: ATTEND Family Medicine
DX: R22.42 Localized swelling, mass and lump, left lower limb (principal); L97.323 Non-pressure chronic ulcer of left ankle with necrosis of muscle
CPT/HCPCS: 93922; 93970

== ENCOUNTER 2019-12-11 19:10 | Emergency (ER) | payer MEDICARE, OTHER ==
[2019-12-11 19:37] VITALS: RESP 18; TEMP 98.5
[2019-12-11] MEDS ORDERED: ACET/COD 300 MG/30 MG STARTER PACK 6 TAB BTL PO STA (21:15)
[2019-12-11] MEDS ORDERED: LIDOCAINE 5% PATCH TOPICAL STA (21:15)
--- NOTE | 2019-12-11 21:47 | CT ---
EXAMINATION TYPE: CT lumbar spine wo con DATE OF EXAM: 12/11/2019 COMPARISON: CT abdomen pelvis 08/31/2019 HISTORY: Leg weakness CT DLP: 1871.6 mGycm Automated exposure control for dose reduction was used. Images were obtained from the level of T12-S3 vertebra with no contrast. Lumbar vertebra have normal alignment. Disc spaces are fairly normal. Posterior elements are intact. There is no compression fracture. Abdominal aorta is atheromatous. There is no paraspinal mass. Sacro iliac joints appear intact. There is posterior disc bulging with facet arthropathy and resultant mild to moderate spinal stenosis at L4-5. IMPRESSION: L4-5 spinal stenosis. No fracture. Normal disc spaces. Spinal stenosis unchanged compared to old CT s can.
--- NOTE | 2019-12-11 22:39 | ED ---
General Adult HPI - General Chief complaint: Extremity Problem,Nontraumatic Stated complaint: Leg pain Weakness Time Seen by Provider: 12/11/19 20:51 Source: patient Mode of arrival: wheelchair Limitations: no limitations - History of Present Illness Initial comments: Patient is a 69-year-old male presenting to emergency Department with a chief complaint of low back pain and left leg weakness. Patient states he has occasional low back pain by history is noticed there was an increase in the lower lumbar region. Patient reports these also noticed some radiation that wraps around the leg and moves anteriorly along the thigh and stops at the knee. Patient reports today he was walking and he felt a weakness in the left leg which brought him to the ground. Patient denies any headache injury. Patient reports he is also going to wound clinic for a burn along the anterior aspect of the left lower leg. Patient reports that has been feeling well otherwise. Patient reports there is also an intermittent numbing like sensation on the anterior aspect of the lower leg. Although, states she can feel pain or pressure. She denies any tingling. Denies any saddle anesthesia, urinary retention with overflow incontinence or bowel incontinence. He does report history of prostate cancer. Denies other extremity pain. - Related Data Home Medications Medication Instructions Recorded Confirmed ALPRAZolam [Xanax] 0.5 mg PO BID PRN 11/21/16 10/17/19 buPROPion HCL [Wellbutrin SR] 150 mg PO DAILY 11/21/16 10/17/19 Cholecalciferol [Vitamin D3 (25 1,000 unit PO DAILY 10/13/19 10/17/19 Mcg = 1000 Iu)] Multivitamins, Thera [Multivitamin 1 tab PO DAILY 10/13/19 10/17/19 (formulary)] allopurinoL [Zyloprim] 300 mg PO DAILY 10/13/19 10/17/19 Previous Rx's Medication Instructions Recorded Cephalexin [Keflex] 500 mg PO Q6H #28 cap 11/04/19 Cyclobenzaprine [Flexeril] 10 mg PO TID PRN #15 tab 12/11/19 Allergies Allergy/AdvReac Type Severity Reaction Status Date / Time adhesive tape Allergy Rash/Hives Verified 11/04/19 19:03 Review of Systems ROS Statement: Those systems with pertinent positive or pertinent negative responses have been documented in the HPI. ROS Other: All systems not noted in ROS Statement are negative. Past Medical History Past Medical History: Cancer, Sleep Apnea/CPAP/BIPAP Additional Past Medical History / Comment(s): Hx Prostate Cancer 6-7 yrs ago. Recent blood in urine, resolved now but has appt to see Urology. Uses CPAP. Gout. History of Any Multi-Drug Resistant Organisms: None Reported Past Surgical History: Hernia Repair, Prostate Surgery Additional Past Surgical History / Comment(s): Colonoscopy, Polyps removed. Past Anesthesia/Blood Transfusion Reactions: No Reported Reaction Past Psychological History: No Psychological Hx Reported Smoking Status: Never smoker Past Alcohol Use History: None Reported Past Drug Use History: None Reported - Past Family History Brother(s) Family Medical History: Myocardial Infarction ([place]) Father Family Medical History: Cancer, Diabetes Mellitus Additional Family Medical History / Comment(s): Liver Cancer. Sister(s) Family Medical History: Cancer, Diabetes Mellitus Additional Family Medical History / Comment(s): Breast Cancer. General Exam Limitations: no limitations General appearance: alert, in no apparent distress Head exam: Present: atraumatic, normocephalic, normal inspection Eye exam: Present: normal appearance, PERRL, EOMI. Absent: scleral icterus, conjunctival injection, nystagmus Pupils: Present: normal accommodation ENT exam: Present: normal exam, normal oropharynx, mucous membranes moist, TM's normal bilaterally, normal external ear exam Neck exam: Present: normal inspection, full ROM. Absent: tenderness Respiratory exam: Present: normal lung sounds bilaterally. Absent: respiratory distress, wheezes, rales Cardiovascular Exam: Present: regular rate, normal rhythm, normal heart sounds Extremities exam: Present: normal inspection, full ROM, normal capillary refill, other (+2 ulnar and radial pulses bilaterally.). Absent: tenderness Back exam: Present: normal inspection (Healing burn wound on the anterior aspect of the left lower leg.), full ROM. Absent: tenderness, CVA tenderness (R), CVA tenderness (L) Neurological exam: Present: alert, oriented X3 Expanded Sensory exam: Upper Extremity Light Touch: Normal, Upper Extremity Pin Prick: Normal, Lower Extremity Light Touch: Normal, Lower Extremity Pin Prick: Normal Motor strength exam: RUE: 5, LUE: 5, RLE: 5, LLE: 5 DTR: Bicep (R): 4+, Bicep (L): 4+, Tricep (R): 4+, Tricep (L): 4+, Patellar (R): 4+, Patellar (L): 4+, Achilles Tendon (R): 4+, Achilles Tendon (L): 4+ Psychiatric exam: Present: normal affect, normal mood Skin exam: Present: warm, dry, intact, normal color Course Vital Signs 12/11/19 12/11/19 19:34 23:06 Temperature 98.5 F Pulse Rate 68 60 Respiratory 18 18 Rate Blood Pressure 181/94 151/80 O2 Sat by Pulse 98 95 Oximetry Medical Decision Making - Medical Decision Making Patient is a 69 no cauda equina.-year-old male presenting to the emergency department chief complaint of back pain and left leg weakness. On exam patient does have full proprioception and sensation pain in the left lower trauma. There is also healing burn wound on the anterior aspect of the left lower leg. No signs of infection at this time. He strength in bilateral lower extremities equal. He did have mid vertebral tenderness in the lower lumbar region and considering his history of prostate cancer CT was warranted. CT showed stenosis at L4 and L5 but no other significant findings. Patient was given a Lidoderm patch and Tylenol 3. Patient was discharged with Flexeril and advised not to take the Tylenol 3 and Flexeril together. Advised him to follow up with a exchange specialist. Strict return parameters were thoroughly discussed with patient was or standing agreeable. Case discussed with physician. Disposition Clinical Impression: Acute back pain with radiculopathy Disposition: HOME SELF-CARE Condition: Stable Instructions (If sedation given, give patient instructions): Low Back Strain (ED) Additional Instructions: Follow up with . Do not take a muscle relaxer with Tylenol 3. Return to emergency department if symptoms worsen. Prescriptions: Cyclobenzaprine [Flexeril] 10 mg PO TID PRN #15 tab PRN Reason: Muscle Spasm Is patient prescribed a controlled substance at d/c from ED?: No Referrals: Quan Stafford DO [Primary Care Provider] - 1-2 days Baylee Gonzales DO [Doctor of Osteopathic Medicine] - 1-2 days Time of Disposition: 22:39
[2019-12-11 23:07] VITALS: BP 151/80; PULSE 60
== END 2019-12-11 23:07 | disposition home or self-care (01) ==
LOC: EC 19:10
DX: M54.16 Radiculopathy, lumbar region (principal); T24.032D Burn of unspecified degree of left lower leg, subsequent encounter; T31.0 Burns involving less than 10% of body surface; G47.33 Obstructive sleep apnea (adult) (pediatric); Z85.46 Personal history of malignant neoplasm of prostate; Z91.048 Other nonmedicinal substance allergy status; Z80.3 Family history of malignant neoplasm of breast; Z80.0 Family history of malignant neoplasm of digestive organs; Z99.89 Dependence on other enabling machines and devices
CPT/HCPCS: 72131; 99284

== ENCOUNTER 2020-11-29 07:25 | Day surgery (SDC) | payer MEDICARE, OTHER ==
[2020-11-26 10:23] VITALS: BMI 35.2
[~2020-11-29 07:25] MED LIST changes: -LIDOCAINE 1% (10MG/ML) FOR IV START INTRADERMA PRN
[2020-11-29 08:16] VITALS: TEMP 97.3
[2020-11-29] MEDS ORDERED: LIDOCAINE 1% (10MG/ML) FOR IV START INTRADERMA ONE (08:23)
[2020-11-29] MEDS ORDERED: LIDOCAINE 1% INJ 10MG/ML (20 ML MDV) ONE (08:44)
[2020-11-29] MEDS ORDERED: PROPOFOL 10 MG/ML 20 ML VIAL IV ONE (08:44)
--- NOTE | 2020-11-29 08:46 | P.GSHP ---
History of Present Illness H&P Date: 11/29/20 Chief Complaint: History of colon polyps Is a 69-year-old male who presents today for colonoscopy. Patient has a history of colon polyps. Past Medical History Past Medical History: Cancer, Sleep Apnea/CPAP/BIPAP Additional Past Medical History / Comment(s): Hx Prostate Cancer 6-7 yrs ago. Uses CPAP. Gout. History of Any Multi-Drug Resistant Organisms: None Reported Past Surgical History: Hernia Repair, Prostate Surgery Additional Past Surgical History / Comment(s): Colonoscopy, Polyps removed. Past Anesthesia/Blood Transfusion Reactions: No Reported Reaction Smoking Status: Never smoker - Past Family History Brother(s) Family Medical History: Myocardial Infarction ([place]) Father Family Medical History: Cancer, Diabetes Mellitus Additional Family Medical History / Comment(s): Liver Cancer. Sister(s) Family Medical History: Cancer, Diabetes Mellitus Additional Family Medical History / Comment(s): Breast Cancer. Medications and Allergies Home Medications Medication Instructions Recorded Confirmed Type ALPRAZolam [Xanax] 0.5 mg PO BID PRN 11/21/16 11/29/20 History buPROPion HCL [Wellbutrin SR] 150 mg PO DAILY 11/21/16 11/29/20 History Cholecalciferol [Vitamin D3 (25 1,000 unit PO DAILY 10/13/19 11/29/20 History Mcg = 1000 Iu)] Multivitamins, Thera [Multivitamin 1 tab PO DAILY 10/13/19 11/29/20 History (formulary)] allopurinoL [Zyloprim] 300 mg PO DAILY 10/13/19 11/29/20 History Allergies Allergy/AdvReac Type Severity Reaction Status Date / Time adhesive tape Allergy Rash/Hives Verified 11/29/20 08:10 indomethacin Allergy Hallucinati Verified 11/29/20 08:10 ons Surgical - Exam Vital Signs Temp Pulse Resp BP Pulse Ox 97.3 F L 62 18 181/78 97 11/29/20 08:14 11/29/20 08:14 11/29/20 08:14 11/29/20 08:14 11/29/20 08:14 - General well developed, well nourished, no distress - Eyes PERRL - ENT normal pinna - Neck no masses - Respiratory normal expansion - Cardiovascular Rhythm: regular - Abdomen Abdomen: soft, non tender Assessment and Plan Plan: History of colon polyps. We'll perform colonoscopy.
--- NOTE | 2020-11-29 08:58 | P.OP ---
Date of Procedure: 11/29/20 Preoperative Diagnosis: History of colon polyps Postoperative Diagnosis: External hemorrhoids Normal colon Procedure(s) Performed: Colonoscopy Anesthesia: MAC Surgeon: Rainer Vasquez Pathology: none sent Condition: stable Disposition: PACU Description of Procedure: No PROCEDURE: The patient was placed on the endoscopy table in the lateral position. Digital rectal examination was performed which revealed external hemorrhoids. The prostate was symmetrical without nodules. Flexible colonoscope was then placed in the patient's anus and passed throughout the entire colon. The ileocecal valve was visualized. The cecum, ascending, transverse, descending and sigmoid colon were normal. The rectum was normal as well. There were no masses, polyps or diverticula noted in the entire colon. SUMMARY OF FINDINGS: External hemorrhoids
[2020-11-29 09:09] VITALS: RESP 16
[2020-11-29 09:21] VITALS: BP 131/76; PULSE 55
== END 2020-11-29 09:48 | disposition home or self-care (01) ==
LOC: ORWHC2ENDO 07:25
PROVIDERS: ATTEND Surgery
DX: Z09 Encounter for follow-up examination after completed treatment for conditions other than malignant neoplasm (principal); Z86.010 Personal history of colon polyps; M10.9 Gout, unspecified; G47.33 Obstructive sleep apnea (adult) (pediatric); K64.4 Residual hemorrhoidal skin tags; Z80.3 Family history of malignant neoplasm of breast; Z82.49 Family history of ischemic heart disease and other diseases of the circulatory system; Z83.3 Family history of diabetes mellitus; Z85.46 Personal history of malignant neoplasm of prostate
CPT/HCPCS: 45378; J2001; J2704

== ENCOUNTER → 2022-09-19 | Outpatient (CLI) | payer MEDICARE, OTHER ==
[2022-09-19 17:53] LABS: African American GFR (CKD) >90 (>60 ml/min/1.73 sqM); Blood Urea Nitrogen 19 mg/dL (9-20); Non-African American GFR(CKD) >90 (>60 ml/min/1.73 sqM)
--- NOTE | 2022-09-22 12:05 | CT ---
EXAMINATION TYPE: CT abdomen pelvis w con DATE OF EXAM: 09/19/2022 COMPARISON: 08/31/2019 INDICATION: Prostate cancer 2013, lower abdominal pain x few months DLP: 1944.1 mGycm, Automated exposure control for dose reduction was used. CONTRAST: 100 cc mL of Isovue 300. Study performed with Oral Contrast TECHNIQUE: Axial images were obtained from above the diaphragm to the pubic rami in the axial plane a t 5 mm thick sections. Reconstructed images are reviewed on the computer in the coronal plane. FINDINGS: Limited CT sections are obtained the lung bases. There is a 1.2 cm calcific density at the left late ral lung base partially visualized within the [id number]. An additional irregular calcification me asuring 0.8 cm just above the left diaphragm. These were present previously. CT ABDOMEN: Liver: There is diffuse diminished density within the liver in relation the spleen compatible with mo derate fatty infiltration of the liver. Spleen: Multiple calcified splenic granulomata are present. Pancreas: Normal Adrenal glands: The adrenal glands are normal. Gallbladder: Normal Kidneys: No masses are evident. No hydronephrosis is present. No cysts are present. Delayed images were obtained through the kidneys, which remain unremarkable. Aorta: Vascular calcification is within the aorta. Inferior vena cava: Normal. CT PELVIS: There is a periumbilical subcutaneous fluid collection measuring 3.3 x 1.1 cm. This was pr esent previously appears similar. Loops of bowel with oral contrast appear normal. There are loops of bowel which are incompletely dis tended or lack oral contrast limiting their evaluation. Appendix: Not identified. No suspicious dilated tubular structure or inflammatory changes are evident . Urinary bladder: Normal. Genitourinary structures: Prostate is not visualized. Correlate with surgical history Osseous structures: No suspicious lytic or sclerotic lesions. Degenerative disc changes are in the lo wer lumbar spine. IMPRESSIONS: 1. No suspicious abnormality to account for lower pelvic pain. 2. Moderate fatty infiltration liver. 3. Subcutaneous seroma similar to mildly improved in the periumbilical region. 4. Calcified left lung base densities present previously.
== END | disposition home or self-care (01) ==
LOC: RADCTMAIN 16:43
PROVIDERS: ATTEND Internal Medicine
DX: C61 Malignant neoplasm of prostate (principal); J98.4 Other disorders of lung; K76.0 Fatty (change of) liver, not elsewhere classified
CPT/HCPCS: 82565; 84520; 74177; 36415; Q9967

== ENCOUNTER → 2022-11-19 | Outpatient (CLI) | payer MEDICARE, OTHER ==
--- NOTE | 2022-11-20 10:59 | MR ---
EXAMINATION TYPE: MR lumbar spine wo/w con DATE OF EXAM: 11/19/2022 COMPARISON: CT 12/11/2019, CT abdomen pelvis 09/19/2022 HISTORY: Prostate cancer, abnormal recent CT CONTRAST: 10 mL intravenous Gadavist. TECHNIQUE: Multiplanar, multisequence images of the lumbar spine were acquired. FINDINGS: L5-S1: Minimal disc bulge is present into the epidural space. No thecal sac compression or spinal can al stenosis is present. Neural foramen are patent. L4-L5: There is a grade 1 spondylolisthesis of L4 anteriorly on L5. Disc uncovering is evident. There are prior left hemilaminectomy. Enhancement of granulation tissue through the laminectomy is evident . This partially surrounds the posterior thecal sac extending from the right lateral side extending p osterior laterally extending to nearly the foramen the left. Disc uncovering is contact with the ante rior thecal sac. Mild spinal canal narrowing is present. 0.9 cm. Facet hypertrophy is present. Modera te bilateral foraminal narrowing is present. Disc spaces and moderate narrowing. L3-L4: Broad-based disc bulge is present with anterior thecal sac flattening. AP spinal canal stenosi s is not present. Facet hypertrophy and ligamentum flavum laxity has posterior lateral thecal sac com pression. This is greater on the left. There is moderate to severe left foraminal stenosis. L2-L3: No significant disc bulge or disc herniation. No spinal canal stenosis. No foraminal stenosi s. L1-L2: No significant disc bulge or disc herniation. No spinal canal stenosis. No foraminal stenosi s. T12-L1: No significant disc bulge or disc herniation. No spinal canal stenosis. No foraminal stenos is. No abnormal enhancement. No suspicious changes to suggest metastatic disease. IMPRESSION: 1. Prior left hemilaminectomy with enhancement of the granulation tissue partially surrounding the po sterior aspects of the thecal sac. 2. Grade 1 spondylolisthesis of L4 anterior on L5. 3. Mild spinal canal narrowing due to disc bulging and facet hypertrophy L4-5. Moderate bilateral for aminal narrowing is present at this level. 4. Moderate to severe left foraminal stenosis due to facet hypertrophy and disc material L3-4. Correl ate with L4 radicular symptoms.
== END | disposition home or self-care (01) ==
LOC: RADMRIMAIN 19:22
PROVIDERS: ATTEND Orthopaedic Surgery
DX: C61 Malignant neoplasm of prostate (principal); M43.16 Spondylolisthesis, lumbar region; M51.36 Other intervertebral disc degeneration, lumbar region; M99.73 Connective tissue and disc stenosis of intervertebral foramina of lumbar region
CPT/HCPCS: 72158; A9585

== ENCOUNTER → 2022-11-25 | Outpatient (CLI) | payer MEDICARE, OTHER ==
--- NOTE | 2022-11-25 18:29 | MR ---
EXAMINATION TYPE: MR pelvis wo/w con DATE OF EXAM: 11/25/2022 COMPARISON: MRI lumbar spine 11/19/2022, CT abdomen pelvis 09/19/2022, PET/CT 06/23/2022 CLINICAL INDICATION:Male, 71 years old with history of C61 prostate ca; PHH, history of radiation the rapy. TECHNIQUE: Triplane multisequence imaging was performed of the pelvis. Then the patient was given c ontrast/gadolinium, 10 cc of Gadavist and multiple post contrast sequences. FINDINGS: Postsurgical changes from prostatectomy. No evidence for local recurrence. Under distended urinary bl adder which limits evaluation. Visualized portions of the bowel unremarkable. No visualized adenopath y. Osteoarthritic changes of both hips with subchondral cystic formation and marginal spurring. No acute fracture. Low T1/T2 signal identified within the S1, S2 and S3 vertebral bodies heterogenous enhance ment identified at these levels. Not typical appearance for radiation changes. Postsurgical changes f rom prior left hemilaminectomy at L5. There is corresponding enhancement identified. Grade 1 anteroli sthesis of L4 on L5 redemonstrated. Tendinosis involving the origin of the right rectus femoris. Ther e is a fat stranding demonstrated within the anterior abdominal wall subcutaneous tissues likely rela wilfredo to medication injection. Demonstration of a anterior abdominal wall incisional fluid collection m easuring 4.2 x 1.0 cm corresponding to a likely seroma. IMPRESSION: 1. Heterogenous enhancing regions of low T1-T2 signal within the S1, S2 and S3 vertebral bodies gali rning for osseous metastasis. Not typical appearance of radiation changes. Further evaluation with [facility] medicine bone scan is recommended. 2. Osteoarthritic changes of both hips with right rectus femoris tendinosis. 3. Postsurgical changes from prostatectomy. 4. Similar grade 1 anterolisthesis of L4 on L5. 5. Small anterior abdominal wall incisional fluid collection favored to represent a seroma.
== END | disposition home or self-care (01) ==
LOC: RADMRIMAIN 13:24
PROVIDERS: ATTEND Orthopaedic Surgery
DX: C61 Malignant neoplasm of prostate (principal); M16.0 Bilateral primary osteoarthritis of hip; Z90.79 Acquired absence of other genital organ(s)
CPT/HCPCS: 72197; A9585

== ENCOUNTER → 2022-12-13 | Outpatient (CLI) | payer MEDICARE, OTHER ==
--- NOTE | 2022-12-14 18:20 | PE ---
EXAMINATION TYPE: PET CT fusion skull to thigh DATE OF EXAM: 12/13/2022 CLINICAL INDICATION:Male, 72 years old with history of C61; TECHNIQUE: Following the intravenous administration of 10.8 mCi of Ga-68 Illuccix (PSMA), whole bod y images are performed from the skull base to the midthigh. Images are reviewed on the computer in t he coronal, axial, and sagittal planes. Reconstructed rotating images are created on independent wor kstation and reviewed on the computer. A non-contrast CT is performed in conjunction with the PET s can. Glucose level 100 mg/dL CT DLP: 473.47 mGycm, Automated exposure control for dose reduction was used. COMPARISON: CT None, PET/CT outside 06/23/2022, MR pelvis 11/25/2022 FINDINGS: Mediastinal SUV mean is 2.0. Hepatic parenchyma SUV mean is 2.1. SKULL BASE AND NECK: No suspicious radiotracer activity. CHEST, MEDIASTINUM, AND HILAR REGION: No suspicious radiotracer activity. ABDOMEN AND PELVIS: * Surgically absent prostate gland. No abnormal radiotracer uptake within the surgical bed. * Anterior abdominal wall soft tissue radiotracer uptake most compatible with infectious/inflammatio n. Max SUV 4.4 on the right and 5.1 on the left. * Left common iliac suspected lymph node on prior is no longer visualized. Previously max SUV 11.9, MUSCULOSKELETAL STRUCTURES: * Heterogenous appearing areas within the sacrum as seen on prior PET and MRI. Max SUV 4.0, previous ly 11.3. OTHER CT: Atherosclerosis of the arterial vasculature. Multiple partially calcified lymph nodes are s een in the mediastinum. Scattered calcified granulomas within the lungs. Hepatic steatosis. Prostate gland appears surgically absent. Calcification granulomas within the liver and spleen. IMPRESSION: Surgically absent prostate gland with interval decrease in radiotracer activity of the sacral osseous lesions compared to prior on 06/23/2022. There is also a decrease in left common iliac chain lymph no de radiotracer activity. No suspicious uptake within the prostate gland surgical bed. Findings compat ible with positive response to therapy.
== END | disposition home or self-care (01) ==
LOC: RADPETMAIN 12:06
PROVIDERS: ATTEND Internal Medicine
DX: C61 Malignant neoplasm of prostate (principal); R59.0 Localized enlarged lymph nodes; Z90.79 Acquired absence of other genital organ(s)
CPT/HCPCS: 78815; A9552

== ENCOUNTER 2024-08-19 10:52 | Emergency (ER) | payer MEDICARE, OTHER ==
[2024-08-19 10:56] VITALS: TEMP 97.5
--- NOTE | 2024-08-19 11:50 | ED ---
General Adult HPI - General Chief complaint: Skin/Abscess/Foreign Body Stated complaint: Bee sting left hand Time Seen by Provider: 08/19/24 10:58 Source: patient, RN notes reviewed Mode of arrival: ambulatory Limitations: no limitations - History of Present Illness Initial comments: 73-year-old male presents to the emergency department for a bee sting to his left hand. Patient states that this occurred yesterday. He notes that he did not have any redness or swelling to the area initially after the sting but this developed this morning. He notes it is uncomfortable to move his fingers and thumb. Patient is concerned because he has been admitted and treated for cellulitis after a bee sting in the past. Has a history of prostate cancer currently on treatment. - Related Data Home Medications Medication Instructions Recorded Confirmed ALPRAZolam [Xanax] 0.5 mg PO BID PRN 11/21/16 11/29/20 buPROPion HCL [Wellbutrin SR] 150 mg PO DAILY 11/21/16 11/29/20 Cholecalciferol [Vitamin D3 (25 1,000 unit PO DAILY 10/13/19 11/29/20 Mcg = 1000 Iu)] Multivitamins, Thera [Multivitamin 1 tab PO DAILY 10/13/19 11/29/20 (formulary)] allopurinoL [Zyloprim] 300 mg PO DAILY 10/13/19 11/29/20 Allergies Allergy/AdvReac Type Severity Reaction Status Date / Time adhesive tape Allergy Rash/Hives Verified 08/19/24 10:56 indomethacin Allergy Hallucinati Verified 08/19/24 10:56 ons Review of Systems ROS Statement: Those systems with pertinent positive or pertinent negative responses have been documented in the HPI. ROS Other: All systems not noted in ROS Statement are negative. Past Medical History Past Medical History: Cancer, Sleep Apnea/CPAP/BIPAP Additional Past Medical History / Comment(s): Hx Prostate Cancer 6-7 yrs ago. Recent blood in urine, resolved now but has appt to see Urology. Uses CPAP. Gout. History of Any Multi-Drug Resistant Organisms: None Reported Past Surgical History: Hernia Repair, Prostate Surgery Additional Past Surgical History / Comment(s): Colonoscopy, Polyps removed. Past Anesthesia/Blood Transfusion Reactions: No Reported Reaction Past Psychological History: No Psychological Hx Reported Smoking Status: Never smoker - Past Family History Brother(s) Family Medical History: Myocardial Infarction ([place]) Father Family Medical History: Cancer, Diabetes Mellitus Additional Family Medical History / Comment(s): Liver Cancer. Sister(s) Family Medical History: Cancer, Diabetes Mellitus Additional Family Medical History / Comment(s): Breast Cancer. General Exam Limitations: no limitations General appearance: alert, in no apparent distress Head exam: Present: atraumatic, normocephalic, normal inspection Eye exam: Present: normal appearance, PERRL, EOMI. Absent: scleral icterus, conjunctival injection, periorbital swelling ENT exam: Present: normal exam, mucous membranes moist Respiratory exam: Present: normal lung sounds bilaterally. Absent: respiratory distress, wheezes, rales, rhonchi, stridor Cardiovascular Exam: Present: regular rate, normal rhythm, normal heart sounds. Absent: systolic murmur, diastolic murmur, rubs, gallop, clicks Extremities exam: Present: full ROM, normal capillary refill, other (Erythema and swelling to the dorsal lateral first digit of the left hand). Absent: tenderness, pedal edema, joint swelling, calf tenderness Neurological exam: Present: alert, oriented X3 Psychiatric exam: Present: normal affect, normal mood Skin exam: Present: warm, dry, intact, erythema (See above). Absent: normal color Course Vital Signs 08/19/24 10:53 Temperature 97.5 F L Pulse Rate 58 L Respiratory 17 Rate Blood Pressure 175/74 O2 Sat by Pulse 97 Oximetry Medical Decision Making - Medical Decision Making Was pt. sent in by a medical professional or institution (, PA, HOT BOX OPERATOR, urgent care, hospital, or care home...) When possible be specific @ -No Did you speak to anyone other than the patient for history (EMS, parent, family, police, friend...)? What history was obtained from this source @ -No Did you review nursing and triage notes (agree or disagree)? Why? @ -I reviewed and agree with nursing and triage notes Were old charts reviewed (outside hosp., previous admission, EMS record, old EKG, old radiological studies, urgent care reports/EKG's, care home records)? Report findings @ -No old charts were reviewed Differential Diagnosis (chest pain, altered mental status, abdominal pain women, abdominal pain men, vaginal bleeding, weakness, fever, dyspnea, syncope, headache, dizziness, GI bleed, back pain, seizure, CVA, palpatations, mental health, musculoskeletal)? @ -Bee sting, cellulitis, anaphylaxis, this list is not all inclusive EKG interpreted by me (3pts min.). @ -None X-rays interpreted by me (1pt min.). @ -None done CT interpreted by me (1pt min.). @ -None done U/S interpreted by me (1pt. min.). @ -None done What testing was considered but not performed or refused? (CT, X-rays, U/S, labs)? Why? @ -None What meds were considered but not given or refused? Why? @ -None Did you discuss the management of the patient with other professionals (professionals i.e. , PA, HOT BOX OPERATOR, lab, RT, psych nurse, psych social worker, transportation refrigeration technician, teacher, disability insurance hearing officer, case consultant)? Give summary @ -No Was smoking cessation discussed for >3mins.? @ -No Was critical care preformed (if so, how long)? @ -No Were there social determinants of health that impacted care today? How? (Homelessness, low income, unemployed, alcoholism, drug addiction, transportation, low edu. Level, literacy, decrease access to med. care, penitentiary, rehab)? @ -No Was there de-escalation of care discussed even if they declined (Discuss DNR or withdrawal of care, Hospice)? DNR status @ -No What co-morbidities impacted this encounter? (DM, HTN, Smoking, COPD, CAD, Cancer, CVA, ARF, Chemo, Hep., AIDS, mental health diagnosis, sleep apnea, morbid obesity)? @ -None Was patient admitted / discharged? Hospital course, mention meds given and route, prescriptions, significant lab abnormalities, going to OR and other pe rtinent info. @ -Discharged. Patient presented to the emergency department for left hand swelling after being stung by a bee yesterday. Patient presents as redness and swelling is worsening today. Discussed that this is likely a typical reaction from the bee sting. Patient will be discharged. Case discussed with Dr. Schultz Undiagnosed new problem with uncertain prognosis? @ -No Drug Therapy requiring intensive monitoring for toxicity (Heparin, Nitro, Insulin, Cardizem)? @ -No Were any procedures done? @ -No Diagnosis/symptom? @ -Bee sting Acute, or Chronic, or Acute on Chronic? @ -Acute Uncomplicated (without systemic symptoms) or Complicated (systemic symptoms)? @ -Uncomplicated Side effects of treatment? @ -No Exacerbation, Progression, or Severe Exacerbation? @ -No Poses a threat to life or bodily function? How? (Chest pain, [place], [place], pneumonia, PE, COPD, DKA, ARF, appy, cholecystitis, CVA, Diverticulitis, Homicidal, Suicidal, threat to staff... and all critical care pts) @ -No Disposition Clinical Impression: Bee sting reaction Disposition: HOME SELF-CARE Condition: Stable Instructions (If sedation given, give patient instructions): Insect Bite or Sting (ED) Additional Instructions: Please follow-up with your doctor. Return to the emergency department for new or worsening symptoms. Is patient prescribed a controlled substance at d/c from ED?: No Referrals: Quan Stafford DO [Primary Care Provider] - 1-2 days
[2024-08-19 11:57] VITALS: BP 150/75; PULSE 53; RESP 18
== END 2024-08-19 11:57 | disposition home or self-care (01) ==
LOC: EC 10:52
DX: T63.441A Toxic effect of venom of bees, accidental (unintentional), initial encounter (principal); Z91.09 Other allergy status, other than to drugs and biological substances; Z88.8 Allergy status to other drugs, medicaments and biological substances
CPT/HCPCS: 99282